=== PATIENT | male | born 1995 | race Caucasian/White ===

== ENCOUNTER 2022-09-09 08:58 | Emergency (ER) | payer OTHER ==
[~2022-09-09] VITALS: Ht 188 cm; Wt 83.9 kg
[~2022-09-09 08:58] MED LIST: KEFLEX500 MG PO
[2022-09-09] MEDS ORDERED: ATIVAN1 MG PO (09:53)
[2022-09-09] MEDS ORDERED: LIDODERM1 EACH TOP (09:53)
[2022-09-09] MEDS ORDERED: NAPROSYN500 MG PO (09:53)
[2022-09-09] MEDS ORDERED: HYDROCODON-ACE1 EA10 PO (09:53)
== END 2022-09-09 10:40 | disposition home or self-care (01) ==
LOC: ED 08:58
DX: S39.012A Strain of muscle, fascia and tendon of lower back, initial encounter (principal); X50.0XXA Overexertion from strenuous movement or load, initial encounter; Y99.0 Civilian activity done for income or pay
CPT/HCPCS: 96372; 99283; A9270; A9270-GY; J1885